=== PATIENT | male | born 1970 | race Asian ===

== ENCOUNTER 2021-10-10 13:20 | Emergency (ER) | payer SELFPAY ==
[2021-10-10] MEDS ORDERED: Aspirin 81 MG Tab.Chew PO ONE (13:33)
[2021-10-10] MEDS ORDERED: LORazepam 2 MG/ML SDV IVPUSH ONE (13:54)
[2021-10-10 14:13] LABS: BLOOD UREA NITROGEN,BUN 13 mg/dL (7.0-18.0); CARBON DIOXIDE,CO2 18.9 mmol/L (21.0-32.0); CHLORIDE,CL 96 mmol/L (98-107); GLUCOSE RANDOM 183 mg/dL (74-106); POTASSIUM,K 2.8 mmol/L (3.5-5.1); SODIUM,NA 133 mmol/L (136-148)
[2021-10-10] MEDS ORDERED: Sodium Chloride 0.9% 1,000 ML IV ONE (14:35)
[2021-10-10] MEDS ORDERED: Potassium Chloride 20 MEQ Tab.ER PO STA (14:58)
== END 2021-10-10 16:31 | disposition home or self-care (01) ==
LOC: MW.ED 13:20
DX: R06.00 Dyspnea, unspecified (principal); F17.210 Nicotine dependence, cigarettes, uncomplicated
CPT/HCPCS: 36415; 71045; 80053; 84484; 85025; 85379; 93005; 96374; 99285; A9270; J2060; J7030; 93010; 99284

== ENCOUNTER 2023-02-07 08:32 | Day surgery (SDC) | payer SELFPAY ==
[~2023-02-07 08:32] MED LIST: Lactated Ringers 1,000 ML IV SCH; Midazolam 1 MG/ML 2 ML SDV ONE; Propofol 200 MG/20 ML SDV ONE; fentaNYL 100 MCG/2 ML SDV ONE
[2023-02-07] MEDS ORDERED: Propofol 200 MG/20 ML SDV ONE (10:56)
== END 2023-02-07 12:10 | disposition home or self-care (01) ==
LOC: MW.SDS 08:32
PROVIDERS: ATTEND Surgery
DX: Z12.11 Encounter for screening for malignant neoplasm of colon (principal); D12.2 Benign neoplasm of ascending colon; D12.5 Benign neoplasm of sigmoid colon; K64.8 Other hemorrhoids; E78.00 Pure hypercholesterolemia, unspecified; I10 Essential (primary) hypertension; E78.1 Pure hyperglyceridemia; R73.9 Hyperglycemia, unspecified; R91.1 Solitary pulmonary nodule; F17.210 Nicotine dependence, cigarettes, uncomplicated; Z79.899 Other long term (current) drug therapy; Z80.0 Family history of malignant neoplasm of digestive organs
CPT/HCPCS: 45385; J2250; J2704; J3010; J7120

== ENCOUNTER 2025-04-06 05:40 | Emergency (ER) | payer SELFPAY ==
[2025-04-06] MEDS ORDERED: Sodium Chloride 0.9% 10 ML Syringe FLUSH PRN ×2 (05:45→06:19)
[2025-04-06] MEDS ORDERED: Sodium Chloride 0.9% 2.5 ML Syringe FLUSH PRN ×2 (05:45→06:19)
[2025-04-06 06:03] LABS: BASOPHILS ABSOLUTE AUTO 0.05 K/uL (0.00-0.20); BASOPHILS PERCENT AUTO 0.6 % (0.0-1.0); EOSINOPHILS ABSOLUTE AUTO 0.35 K/uL (0.00-0.45); EOSINOPHILS PERCENT AUTO 4.0 % (0.0-6.0); IMMATURE GRAN ABSOLUTE AUTO 0.04 K/uL (0.00-0.05); IMMATURE GRAN PERCENT AUTO 0.5 % (0.0-0.4); LYMPHOCYTES ABSOLUTE AUTO 3.36 K/uL (1.00-4.80); LYMPHOCYTES PERCENT AUTO 38.8 % (24.0-44.0); MEAN PLATELET VOLUME 9.2 fL (9.4-12.4); MONOCYTES ABSOLUTE AUTO 0.80 K/uL (0.00-0.80); MONOCYTES PERCENT AUTO 9.2 % (0.0-8.0); NEUTROPHILS ABSOLUTE AUTO 4.05 K/uL (1.80-7.70); NEUTROPHILS PERCENT AUTO 46.9 % (41.0-71.0); NRBC ABSOLUTE 0.00 K/uL (0.00-0.02); NRBC PERCENT 0.0 /100WBC (0.0-0.2); PLATELET COUNT,PLT 224 K/uL (150-400); RED BLOOD CELL COUNT 4.54 M/uL (4.52-5.90); WHITE BLOOD CELL COUNT,WBC 8.65 K/uL (3.9-11.3)
[2025-04-06 06:28] LABS: A/G RATIO 1.0 (0.9-1.6); ALANINE AMINOTRANSFERASE,ALT 24.0 IU/L (14-63); ASPARTATE AMNIOTRANSFERASE,AST 18.0 IU/L (15-37); BILIRUBIN TOTAL 0.5 mg/dL (0.2-1.0); BLOOD UREA NITROGEN,BUN 15.0 mg/dL (7.0-18.0); CARBON DIOXIDE,CO2 26.7 mmol/L (21.0-32.0); CHLORIDE,CL 99.0 mmol/L (98-107); CREATININE 1.2 mg/dL (0.8-1.3); EST CRCL DRUG DOSING (CG) 64.24 mL/min; GLUCOSE RANDOM 199.0 mg/dL (74-106); POTASSIUM,K 3.7 mmol/L (3.5-5.1); PROTEIN TOTAL,TP 7.2 g/dL (6.4-8.2); SODIUM,NA 136.0 mmol/L (136-148)
[2025-04-06] MEDS: Alum Hydrox/Mag Hydrox/Simeth 15 ML, Lidocaine 2% 5 ML PO ONE (06:30)
[2025-04-06 06:31] LABS: ESTIMATED GFR 72.0 mL/min (>60)
[2025-04-06] MEDS: Iopamidol 755 MG/ML 500 ML Multipack Bottle IVPUSH STA (07:04)
== END 2025-04-06 11:11 | disposition home or self-care (01) ==
LOC: MW.ED 05:40
DX: R07.9 Chest pain, unspecified (principal); R73.9 Hyperglycemia, unspecified; I10 Essential (primary) hypertension; F17.200 Nicotine dependence, unspecified, uncomplicated; Z79.899 Other long term (current) drug therapy
CPT/HCPCS: 36415; 71045; 71275; 80053; 83690; 84484; 85025; 93005; 96360; 99285; A9270; J3490; J7030; Q9967; 93010; 99284